=== PATIENT | male | born 1975 | race Caucasian/White ===

== ENCOUNTER 2019-01-13 10:08 | Emergency (ER) | payer SELFPAY ==
[2019-01-13] MEDS ORDERED: ZANTAC 150 PO (10:32)
[2019-01-13] MEDS ORDERED: TYLENOL 500MG TAB PO (10:33)
[2019-01-13 11:46] LABS: HEMATOCRIT 45.1 % (39.0-50.0); HEMOGLOBIN 14.9 g/dl (14.0-18.0); IMMATURE GRANULOCYTES 0.3 % (0.0-5.0); MEAN CELL VOLUME 87.9 fL CALC (80.0-100.0); NEUT# 4.41 thou/uL (1.82-7.42); RED BLOOD COUNT 5.13 mill/uL (4.70-6.10); RED CELL DISTRI WIDTH 12.9 % (11.5-15.5)
[2019-01-13 12:10] LABS: BARBITURATES NEGATIVE (NEGATIVE); COCAINE NEGATIVE (NEGATIVE); METHADONE NEGATIVE (NEGATIVE); OXCYCODONE NEGATIVE (NEGATIVE); TETRAHYDROCANNABIONOL POSITIVE (NEGATIVE); TRICYLIC ANTIDEPRESSANTS NEGATIVE (NEGATIVE)
[2019-01-13 12:36] LABS: ALBUMIN 4.3 g/dL (3.2-5.0); ALKALINE PHOSPHATASE 47 u/l (38-126); ANION GAP 13 (6-22 (CALC)); BILIRUBIN, TOTAL 0.4 mg/dL (0.0-1.4); BUN 8 mg/dL (9-20); BUN/CREATININE RATIO 13 (12-20 (CALC)); CARBON DIOXIDE 26 mmol/l (22-30); CHLORIDE 106 mmol/l (95-108); CREATININE 0.6 mg/dL (0.7-1.3); GFR > 60 ML/MIN (>=60 (CALC)); GFR FOR AFR.AMER. > 60 ML/MIN (>=60 (CALC)); LIPASE 34 u/l (23-300); POTASSIUM 4.5 mmol/l (3.5-5.1); SGOT/AST 49 u/l (17-59); SODIUM 140 mmol/l (137-146); TOTAL PROTEIN 7.2 g/dL (6.3-8.2)
[2019-01-13] MEDS ORDERED: PROTONIX40 M2 PO (14:02)
[2019-01-13 14:19] VITALS: BP 121/83
== END 2019-01-13 14:28 | disposition home or self-care (01) | DRG 392 ==
LOC: ED 10:08
PROVIDERS: Emergency Medicine
DX: R10.13 Epigastric pain (principal); R07.89 Other chest pain; I34.1 Nonrheumatic mitral (valve) prolapse; K27.9 Peptic ulcer, site unspecified, unspecified as acute or chronic, without hemorrhage or perforation; Z79.899 Other long term (current) drug therapy

== ENCOUNTER 2020-05-20 20:09 | Emergency (ER) | payer SELFPAY ==
[~2020-05-20] VITALS: Ht 180.3 cm; Wt 95.0 kg
[~2020-05-20 20:09] MED LIST: PROTONIX40 M2 PO; TYLENOL 500MG TAB PO; ZANTAC 150 PO
[2020-05-20] MEDS ORDERED: PRILOSEC20 MG/CAP PO (20:36)
[2020-05-20 21:22] LABS: URINE BILIRUBIN - DIPSTICK NEGATIVE (NEGATIVE); URINE BLOOD DIPSTICK NEGATIVE (NEGATIVE); URINE COLOR YELLOW; URINE GLUCOSE - DIPSTICK NEGATIVE (NEGATIVE); URINE KETONE 40 mg/dL (NEGATIVE); URINE LEUK ESTERASE NEGATIVE (NEGATIVE); URINE NITRITE - DIPSTICK NEGATIVE (Negative); URINE PROTEIN - DIPSTICK NEGATIVE (NEG-TRACE); URINE UROBILINOGEN - DIPSTICK 0.2 E.U./dL (0.2)
[2020-05-20 21:27] LABS: HEMATOCRIT 40.2 % (39.0-50.0); HEMOGLOBIN 13.7 g/dl (14.0-18.0); MEAN CELL VOLUME 90.5 fL CALC (80.0-100.0); MEAN CORPUSCULAR HGB 30.9 pG CALC (26.0-32.0); MEAN CORPUSCULAR HGB CONC 34.1 g/dL CAL (32.0-36.0); PLATELET COUNT 248 thou/uL (130-400); RED BLOOD COUNT 4.44 mill/uL (4.70-6.10); RED CELL DISTRI WIDTH 13.1 % (11.5-15.5)
[2020-05-20 21:28] LABS: BASO% 0 % (0-3); EOS% 1 % (0-8); LYMPH% 16 % (15-41); MONO% 2 % (2-13); NEUT% 81 % (42-76)
[2020-05-20 21:33] LABS: ALBUMIN 4.1 g/dL (3.2-5.0); ALKALINE PHOSPHATASE 47 u/l (38-126); ANION GAP 10 (6-22 (CALC)); BILIRUBIN, TOTAL 0.5 mg/dL (0.0-1.4); BUN 15 mg/dL (9-20); BUN/CREATININE RATIO 25 (12-20 (CALC)); CARBON DIOXIDE 24 mmol/l (22-30); CHLORIDE 108 mmol/l (95-108); CREATININE 0.6 mg/dL (0.7-1.3); GFR > 60 ML/MIN (>=60 (CALC)); GFR FOR AFR.AMER. > 60 ML/MIN (>=60 (CALC)); POTASSIUM 4.2 mmol/l (3.5-5.1); SGOT/AST 19 u/l (17-59); SODIUM 137 mmol/l (137-146); TOTAL PROTEIN 6.8 g/dL (6.3-8.2)
[2020-05-20 22:26] VITALS: BP 95/51
[2020-05-20] MEDS ORDERED: AMOXICILLIN500 M2 PO (22:40)
[2020-05-20] MEDS ORDERED: PHENERGAN25 MG RE (22:40)
== END 2020-05-20 23:05 | disposition home or self-care (01) | DRG 159 ==
LOC: ED 20:09
PROVIDERS: Family Medicine
DX: K04.7 Periapical abscess without sinus (principal); K52.9 Noninfective gastroenteritis and colitis, unspecified; N20.0 Calculus of kidney; I34.1 Nonrheumatic mitral (valve) prolapse; F17.210 Nicotine dependence, cigarettes, uncomplicated; Z87.442 Personal history of urinary calculi

== ENCOUNTER 2024-07-24 12:08 | Emergency (ER) | payer OTHER ==
[~2024-07-24] VITALS: Ht 182.9 cm; Wt 83.0 kg
[~2024-07-24 12:08] MED LIST changes: +AMOXICILLIN500 M2 PO; +CIPROFLOXACN500 MG PO; +DEXAMETHASON6 MG PO; +ONDANSETRON4 MG PO; +PAXLOVID PO; +PHENERGAN25 MG RE; +PRILOSEC20 MG/CAP PO
[2024-07-24 13:09] VITALS: BP 142/100
[2024-07-24] MEDS ORDERED: TRAMADOL HYDROC50 M1 PO (14:48)
== END 2024-07-24 15:04 | disposition home or self-care (01) | DRG 563 ==
LOC: ED 12:08
PROC: 2W3EX1Z Immobilization of Right Hand using Splint (ICD-10-PCS; principal; 2024-07-24)
DX: S62.316A Displaced fracture of base of fifth metacarpal bone, right hand, initial encounter for closed fracture (principal); Y04.0XXA Assault by unarmed brawl or fight, initial encounter